=== PATIENT | female | born 1985 | race Caucasian/White ===

== ENCOUNTER 2017-04-15 08:43 | Emergency (ER) | payer BC ==
[2017-04-15 09:15] VITALS: BP 113/76
--- NOTE | 2017-04-15 09:32 | UC ---
Skin Complaint HPI - HPI Summary HPI Summary: She went biking in [place]. she has a few skin macules that she is concerned for tick bites. - History of Current Complaint Chief Complaint: UCSkin Time Seen by Provider: 04/15/17 09:22 Stated Complaint: TICK BITE LEFT HIP Hx Obtained From: Patient Hx Last Menstrual Period: 04/07/17 Onset/Duration: Gradual Onset Skin Exposure Onset/Duration: Days Ago Onset Severity: Mild Current Severity: Mild Location: Diffuse - left hip one macule, abd two macules. - Allergy/Home Medications Allergies/Adverse Reactions: Allergies Allergy/AdvReac Type Severity Reaction Status Date / Time No Known Allergies Allergy Verified 04/15/17 09:09 Home Medications: Home Medications Bcp 1 tab PO DAILY 04/15/17 [History] Review of Systems All Other Systems Reviewed And Are Negative: Yes PMH/Surg Hx/FS Hx/Imm Hx Previously Healthy: Yes - Surgical History Surgical History: None - Family History Known Family History: Positive: Other - no related skin disease. - Social History Occupation: Employed Part-time Lives: With Family Alcohol Use: Occasionally Substance Use Type: None Smoking Status (MU): Never Smoked Tobacco Physical Exam Triage Information Reviewed: Yes Appearance: Well-Appearing, No Pain Distress, Well-Nourished Vital Signs: Initial Vital Signs Temp 99.5 F 04/15/17 09:10 Pulse 53 04/15/17 09:10 Resp 14 04/15/17 09:10 BP 113/76 04/15/17 09:10 Pulse Ox 100 04/15/17 09:10 Vital Signs Reviewed: Yes Eye Exam: Normal ENT Exam: Normal Neck exam: Normal Respiratory Exam: Normal Cardiovascular Exam: Normal Abdominal Exam: Normal Neurological Exam: Normal Psychological Exam: Normal Skin Exam: Other - left hip one pea sized macule without streaking or induration. no imbeded tick even under magnification. two macules of the abd. Course/Dx - Diagnoses Provider Diagnoses: insect bites. Discharge - Discharge Plan Condition: Good Disposition: HOME Patient Education Materials: Insect Bite or Sting (ED)
== END 2017-04-15 09:54 | disposition home or self-care (01) ==
LOC: UCCORT 08:43
DX: S70.262A Insect bite (nonvenomous), left hip, initial encounter (principal); S30.861A Insect bite (nonvenomous) of abdominal wall, initial encounter; W57.XXXA Bitten or stung by nonvenomous insect and other nonvenomous arthropods, initial encounter; Y93.55 Activity, bike riding; Y92.9 Unspecified place or not applicable
CPT/HCPCS: 99201; G0463